=== PATIENT | male | born 1960 | race Caucasian/White ===

== ENCOUNTER 2018-06-20 05:41 | Inpatient (IN) | payer BC, OTHER ==
[2018-06-11 08:20] VITALS: BMI 31.0
--- NOTE | 2018-06-11 08:29 | PAT Medication Instructions ---
Service Date Jun 11, 2018. Current Home Medication List Aspirin (Aspir-Low), 81 MG PO BID Atorvastatin (Lipitor), 10 MG PO QPM Esomeprazole Magnesium (Nexium), 20 MG PO AFTERNOON Finasteride (Proscar), 5 MG PO AFTERNOON Losartan Potassium (Losartan Potassium), 25 MG PO QAM Tamsulosin Hcl (Flomax), 0.4 MG PO BID Warfarin Sod (Jantoven), 1 MG PO QPM Medication Instructions For Your Scheduled Surgery -Check with your surgeon for instructions for: Aspirin (Aspir-Low), 81 MG PO BID - Hold the following medications 5 days prior to surgery per hematology: Warfarin Sod (Jantoven), 1 MG PO QPM - Hold the following medications the morning of surgery: Losartan Potassium (Losartan Potassium), 25 MG PO QAM - Take the following medications the morning of surgery with a sip of water: Tamsulosin Hcl (Flomax), 0.4 MG PO BID - Take the following medications as scheduled the afternoon/night before surgery : Atorvastatin (Lipitor), 10 MG PO QPM Esomeprazole Magnesium (Nexium), 20 MG PO AFTERNOON Finasteride (Proscar), 5 MG PO AFTERNOON Tamsulosin Hcl (Flomax), 0.4 MG PO BID If you have any questions please call us at [phone] or [phone] or [phone]
--- NOTE | 2018-06-11 08:54 | DIAGNOSTIC IMAGING REPORT ---
CHEST 2 VIEWS ROUTINE CLINICAL HISTORY: PAT preoperative evaluation COMPARISON STUDY: 10/08/2013 FINDINGS: The bones soft tissues and hemidiaphragms are normal. The cardiomediastinal silhouette is normal. The lungs are clear. The pulmonary vasculature is normal. IMPRESSION: Negative chest. The above report was generated using voice recognition software. It may contain grammatical, syntax or spelling errors. Electronically signed by: Michael Diane M.D. 06/11/2018 8:52 AM Dictated Date/Time: 06/11/2018 8:52 AM
[2018-06-11 10:30] LABS: CALCIUM 8.7 mg/dl (8.5-10.1); CREATININE 1.08 mg/dl (0.60-1.40); POTASSIUM 4.1 mmol/L (3.5-5.1)
[2018-06-11 10:37] LABS: PTT PATIENT 28.4 SECONDS (21.0-31.0)
[2018-06-11 11:25] LABS: BASO % 0.2 %; BASO ABS # 0.03 K/uL (0-0.2); EOS ABS # 0.26 K/uL (0-0.5); HEMATOCRIT 47.3 % (42-52); HEMOGLOBIN 15.9 g/dL (14.0-18.0); IG# 0.16 K/uL (0.00-0.02); LYMPH % 17.3 %; LYMPH ABS # 2.29 K/uL (1.2-3.4); MEAN CELL VOLUME 80.6 fL (80-100); MEAN CORPUSCULAR HEMOGLOBIN 27.1 pg (25-34); MEAN CORPUSCULAR HGB CONC 33.6 g/dl (32-36); MEAN PLATELET VOLUME 10.9 fL (7.4-10.4); MONO % 8.8 %; MONO ABS # 1.17 K/uL (0.11-0.59); NEUT % 70.5 %; NEUT ABS # 9.32 K/uL (1.4-6.5); PLATELET COUNT 243 K/uL (130-400); RED CELL DISTRIBUTION WIDTH CV 13.6 % (11.5-14.5); RED CELL DISTRIBUTION WIDTH SD 39.9 fL (36.4-46.3); WHITE BLOOD COUNT 13.23 K/uL (4.8-10.8)
[~2018-06-20] VITALS: Ht 182.9 cm; Wt 105.4 kg
[2018-06-20] VITALS (10 sets, daily range): BP systolic 116–150; BP diastolic 70–99; PULSE 82–95; TEMP 36.4–37; O2SAT 93–98; Ht 182.9 cm; Wt 105.4 kg
[~2018-06-20 05:41] MED LIST: ASPI81TA25 PO; ATOR10TA82 PO; CZR25 PO; ESOM20CA PO; FINA5TAB PO; TAMS0.4C38 PO; WARF1TAB6 PO
[2018-06-20] MEDS ORDERED: ACETAMINOPHEN 500 MG TAB PO SCH (06:00)
[2018-06-20] MEDS ORDERED: CeleBREX 200 MG CAP PO SCH (06:00)
[2018-06-20] MEDS ORDERED: CEFAZOLIN 2000MG IV PUSH 15 ML IV SCH (06:00)
[2018-06-20] MEDS ORDERED: GABAPENTIN 600 MG PO SCH (06:00)
[2018-06-20] MEDS ORDERED: LACTATED RINGER'S 1000ML 1,000 ML IV SCH (06:00)
[2018-06-20] MEDS ORDERED: MIDAZOLAM HCL 1 MG/ML 2ML VIAL ONE (06:53)
[2018-06-20] MEDS ORDERED: FENTANYL CITRATE INJ 50 MCG/1 ML 2 ML VIAL ONE (06:53)
[2018-06-20] MEDS ORDERED: THROMBIN FOR SOLN 20000 UNIT KIT ONE (06:55)
[2018-06-20] MEDS ORDERED: BUPIVACAINE/EPINEPHRINE 0.5% MPF 1:200,000 30 ML VIAL ONE (06:55)
[2018-06-20] MEDS ORDERED: SODIUM CHLORIDE 0.9% PF 50 ML VIAL ONE (06:55)
[2018-06-20] MEDS ORDERED: BUPIVACAINE LIPOSOME 1/3% 266 MG/20 ML VIAL ONE (06:55)
[2018-06-20] MEDS ORDERED: BACITRACIN 50000 UNIT VIAL ONE (06:56)
[2018-06-20] MEDS ORDERED: BUPIVACAINE 0.5 % 5 MG/1 ML PF 10ML VIAL ONE (07:04)
[2018-06-20] MEDS ORDERED: NALOXONE HCL 0.4 MG/1 ML VIAL/CARP IV PRN ×2 (07:30→09:45)
[2018-06-20] MEDS ORDERED: PHENYLEPHRINE 100MCG/ML 5ML SYR IV PRN (07:30)
[2018-06-20] MEDS ORDERED: LABETALOL HCL IV 5 MG/ML 20ML IV PRN (07:30)
[2018-06-20] MEDS ORDERED: EpHEDrine SULFATE INJ 50 MG/ML AMP IV PRN (07:30)
[2018-06-20] MEDS ORDERED: FLUMAZENIL 0.1 MG/1 ML 10 ML VIAL IV PRN (07:30)
[2018-06-20] MEDS ORDERED: MoRPHine SULFATE 10 MG/ML CARP/VIAL IV PRN (07:30)
[2018-06-20] MEDS ORDERED: MEPERIDINE HCL 25 MG/ML CARP IV PRN (07:30)
[2018-06-20] MEDS ORDERED: ONDANSETRON INJ 2 MG/ML 2 ML VIAL IV PRN ×2 (07:30→09:45)
[2018-06-20] MEDS ORDERED: ATROPINE SULFATE 0.1 MG/ML 5ML SYR IV PRN (07:30)
[2018-06-20 07:33] LABS: PTT PATIENT 29.5 SECONDS (21.0-31.0)
--- NOTE | 2018-06-20 07:34 | History & Physical Bridge Note ---
H&P Re-Evaluation Bridge Note: I have examined the patient, reviewed the History & Physical and in the interval since the performance of the History & Physical I have noted the following changes of clinical significance: No changes noted
--- NOTE | 2018-06-20 07:35 | History and Physical ---
History & Physical Date Jun 20, 2018. Chief Complaint Back and leg pain History of Present Illness The patient is a 57 year old male with complaints of back and leg pain Additional History Hepatic Disease: No Endocrine Disorder: No Kidney Disease: No Hypertension: Yes Heart Disease: No Bleeding Tendencies: No Infectious Diseases: No Allergies Coded Allergies: No Known Allergies (Verified , 06/20/18) Home Medications Scheduled Aspirin (Aspir-Low), 81 MG PO BID Atorvastatin (Lipitor), 10 MG PO QPM Esomeprazole Magnesium (Nexium), 20 MG PO AFTERNOON Finasteride (Proscar), 5 MG PO AFTERNOON Losartan Potassium (Losartan Potassium), 25 MG PO QAM Tamsulosin Hcl (Flomax), 0.4 MG PO BID Warfarin Sod (Jantoven), 1 MG PO QPM Physical Examination Skin: warm/dry, no rash Eyes: normal inspection, EOMI, sclerae normal ENT: normal ENT inspection, pharynx normal Head: normocephalic, atraumatic Neck: supple, no adenopathy, trachea midline Respiratory/Chest: lungs clear, normal breath sounds, no respiratory distress Cardiovascular: regular rate, rhythm, no edema, no murmur Abdomen / GI: normal bowel sounds, non tender Back: normal inspection Extremities: normal inspection, normal range of motion Neurologic/Psych: no motor/sensory deficits, alert, normal reflexes, oriented x 3 Diagnosis Lumbar spinal stenosis with neurogenic claudication Plan of Treatment Decompression and fusion L2-3 hardware removal L3-L5
[2018-06-20] MEDS ORDERED: LIDOCAINE HCL 2% 2 ML VIAL (20MG/ML) ONE (08:13)
[2018-06-20] MEDS ORDERED: ROCURONIUM BROMIDE 10 MG/ML 5 ML VIAL ONE (08:13)
[2018-06-20] MEDS ORDERED: ONDANSETRON INJ 2 MG/ML 2 ML VIAL ONE (08:13)
[2018-06-20] MEDS ORDERED: DEXAMETHASONE SOD INJ 4 MG/ML VIAL ONE (08:13)
[2018-06-20] MEDS ORDERED: PROPOFOL IV EMULSION 10 MG/ML 20 ML VIAL ONE (08:13)
[2018-06-20] MEDS ORDERED: SODIUM CHLORIDE 0.9% INJ 10 ML VIAL ONE (08:26)
[2018-06-20] MEDS ORDERED: GLYCOPYRROLATE INJ 0.2 MG/ML VIAL ONE (08:29)
[2018-06-20] MEDS ORDERED: PHENYLEPHRINE 100MCG/ML 5ML SYR ONE (08:29)
[2018-06-20] MEDS ORDERED: NEOSTIGMINE METHYLSULFATE 1 MG/ML 10ML VIAL ONE (08:29)
[2018-06-20] MEDS ORDERED: EpHEDrine SULFATE 50MG/5ML SYR ONE (08:32)
[2018-06-20] MEDS ORDERED: HYDROmorphone INJ 2 MG/ML SYR/VIAL ONE (09:12)
[2018-06-20] MEDS ORDERED: HYDROmorphone INJ 0.5 MG/0.5 ML SYR IV PRN (09:45)
[2018-06-20] MEDS ORDERED: BISACODYL 10 MG SUPP PR PRN (09:45)
[2018-06-20] MEDS ORDERED: PROMETHAZINE HCL INJ 12.5 MG in SODIUM CHLORIDE 0.9% 50ML 50 ML IV PRN (09:45)
[2018-06-20] MEDS ORDERED: ACETAMINOPHEN IV 100 ML IV PRN (09:45)
[2018-06-20] MEDS ORDERED: CEFAZOLIN IV 2,000 MG in DEXTROSE 5% 50ML 50 ML IV SCH (09:45)
[2018-06-20] MEDS ORDERED: LORAZEPAM INJ 0.5 MG in SYRINGE 0 ML IV PRN (09:45)
[2018-06-20] MEDS ORDERED: hydrOXYzine HCL 25 MG TAB PO PRN (09:45)
[2018-06-20] MEDS ORDERED: LORAZEPAM 0.5 MG TAB PO PRN (09:45)
[2018-06-20] MEDS ORDERED: FAMOTIDINE 20 MG TAB PO PRN (09:45)
[2018-06-20] MEDS ORDERED: DO NOT ADMINISTER FLU VACCINE PRN (09:45)
[2018-06-20] MEDS ORDERED: ALUMINUM/MAGNESIUM SUSP 30 ML UDC PO PRN (09:45)
[2018-06-20] MEDS ORDERED: DO NOT ADMINISTER PNEUMOCOCCAL VACCINE PRN (09:45)
[2018-06-20] MEDS ORDERED: SOD PHOSPHATE/SOD BIPHOSPHATE ENEMA 132 ML BTL PR PRN (09:45)
[2018-06-20] MEDS ORDERED: METOCLOPRAMIDE HCL INJ 5 MG/ML 2 ML VIAL IV PRN (09:45)
[2018-06-20] MEDS ORDERED: MAGNESIUM HYDROXIDE SUSP 30 ML UDC PO PRN (09:45)
--- NOTE | 2018-06-20 09:45 | [facility] Operative Report ---
Operative Report Operative Date Jun 20, 2018. Pre-Operative Diagnosis Lumbar spinal stenosis with neurogenic claudication Post-Operative Diagnosis Lumbar spinal stenosis with neurogenic claudication Procedure(s) Performed 1. Removal of posterior segmental instrumentation L3-4 L4-5 per #2 expiration of fusion L3-4 L4-5 per #3 lumbar decompression medial facetectomies foraminotomies L1-L2 3. #4 posterior spinal fusion L2-3. #5 placement of posterior instrumentation L2-3. #6 interbody fusion L2-3. #7 placement peek cage 11 x 26 mm L2-3. #8 placement of local autograft in the posterior lateral gutters. #9 placement of infuse collagen sponge combined with mass graft in the posterior lateral gutters and ostial amp in the interbody space. Surgeon Mechanical Systems Design Engineer Surgeon(s) LIZETH Seals Estimated Blood Loss 250 Findings Severe spinal stenosis Specimens A. Removed Lumbar Hardware Anesthesia Type General Description of Procedure Patient was met with preoperatively case discussed all questions addressed. After informed consent obtained patient was taken to the operative suite underwent intubation and placed in a prone position on the Carlos table on top of the Waldo frame. All bony prominences well-padded eyes inspected to ensure no external pressure placed upon the. This point the lumbar spine was prepped and draped in the normal sterile fashion. Sharp dissection with the assistance Bovie cautery was performed down to and exposing the lamina and transverse processes of L2 and instrumentation L3-L4-L5 bilaterally. I then proceeded with hardware L3 L4-5 bilaterally explain the fusion mass noting it to be intact. Then performed complete laminectomy of L2 and L1 addressing severe lateral recess and foraminal disease. Pedicle screws were then placed in L2 and L3 bilaterally with the assistance of fluoroscopy and process chata placed. Through a trans-foraminal portion right complete discectomy was warmed endplates created to subcortical bleeding bone and a 11 x 26 mm peek cage filled with ostium bone graft tapped in position. The rods then compressed locked in final position bilaterally. The transverse processes of L2 and L3 burred to subcortical bleeding bone. Infuse collagen sponge mass graft local autograft placed in the posterior gutters. Approximately 100 cc of Exparel injected into the musculature. 15 round DEVON drain inserted. Incision was then closed with 1 Vicryl fascia 2-0 Vicryl substantially and 4-0 Monocryl for fast closure Steri-Strips sterile dressing placed. Patient weakened the PACU stable disc. Please note Rani Alcocer present at the entire procedure involved in patient positioning complex portions of the surgery and final skin closure. I attest to the content of the Intraoperative Record and any orders documented therein. Any exceptions are noted below.
--- NOTE | 2018-06-20 09:56 | DIAGNOSTIC IMAGING REPORT ---
INTRAOPERATIVE LUMBAR SPINE 2 VIEWS CLINICAL HISTORY: L2-L3 DECOMPRESSION AND FUSION, L3-L5 HARDWARE REMOVAL COMPARISON STUDY: 11/04/2013 FINDINGS: 8 seconds of fluoroscopic time was utilized. 2 intraoperative fluoroscopic spot images are provided for interpretation. There are postsurgical changes of an interval L2-3 discectomy and interbody fusion. There is been interval removal of the previous identified L4 and L5 pedicle screws. There is L2-3 posterior spinal fusion with pedicle screws and adjoining rods. IMPRESSION: Intraoperative radiographs demonstrate postsurgical changes as described above. Electronically signed by: Waqas Begum M.D. 06/20/2018 9:55 AM Dictated Date/Time: 06/20/2018 9:52 AM
[2018-06-20] MEDS: HYDROmorphone INJ 1 MG/ML SYR IV PRN ×4 (10:20→10:43)
--- NOTE | 2018-06-20 10:46 | Anesthesiology Progress Note ---
Anesthesia Post Op Note Date & Time Jun 20, 2018 at 10:46 Vital Signs Pain Intensity: 2 Vital Signs Past 12 Hours Date Time Temp Pulse Resp B/P (MAP) Pulse Ox O2 Delivery O2 Flow Rate FiO2 06/20/18 10:40 76 14 126/80 97 Nasal Cannula 3 Oxymask 06/20/18 10:30 87 13 124/89 96 Nasal Cannula 10 Oxymask 06/20/18 10:20 87 13 124/89 96 Nasal Cannula 10 Oxymask 06/20/18 10:10 91 17 135/81 99 Oxymask 10 06/20/18 10:03 36.7 79 16 116/61 100 Oxymask 10 06/20/18 06:10 36.7 92 20 150/99 96 Room Air Notes Mental Status: alert / awake / arousable, participated in evaluation Pt Amnestic to Procedure: Yes Nausea / Vomiting: adequately controlled Pain: adequately controlled Airway Patency, RR, SpO2: stable & adequate BP & HR: stable & adequate Hydration State: stable & adequate Anesthetic Complications: no major complications apparent
[2018-06-20] MEDS ORDERED: FLOSEAL HEMOSTATIC MATRIX 10ML TOP ONE (11:04)
[2018-06-20] MEDS: SODIUM CHLORIDE 0.9% 1000ML 1,000 ML IV SCH ×3 (11:15→23:05)
[2018-06-20] MEDS: ACETAMINOPHEN 500 MG TAB PO PRN (12:35)
[2018-06-20] MEDS: OXYCODONE HCL IR 5 MG TAB (IMMEDIATE RELEASE) PO PRN ×2 (13:46→23:04)
[2018-06-20] MEDS: CEFAZOLIN IV 2,000 MG in SYRINGE 0 ML IV SCH ×2 (16:51→23:05)
[2018-06-20] MEDS: PANTOprazole SOD 40 MG TAB PO SCH (16:52)
[2018-06-20] MEDS: ASPIRIN 81 MG ECTAB PO SCH (20:40)
[2018-06-20] MEDS: ATORVASTATIN 10 MG TAB PO SCH (20:41)
[2018-06-20] MEDS: DOCUSATE SODIUM/SENNA 50/8.6MG TAB PO SCH (20:41)
[2018-06-20] MEDS: TAMSULOSIN HCL 0.4 MG CAP PO SCH (20:41)
[2018-06-21 03:50] VITALS: BP 149/71; PULSE 85; TEMP 36.7; O2SAT 97
[2018-06-21] MEDS: SODIUM CHLORIDE 0.9% 1000ML 1,000 ML IV SCH (05:39)
[2018-06-21] MEDS: OXYCODONE HCL IR 5 MG TAB (IMMEDIATE RELEASE) PO PRN (06:10)
[2018-06-21 07:07] LABS: BASO % 0.1 %; BASO ABS # 0.02 K/uL (0-0.2); HEMATOCRIT 39.5 % (42-52); HEMOGLOBIN 12.8 g/dL (14.0-18.0); IG# 0.17 K/uL (0.00-0.02); LYMPH % 11.2 %; LYMPH ABS # 2.56 K/uL (1.2-3.4); MEAN CELL VOLUME 81.1 fL (80-100); MEAN CORPUSCULAR HEMOGLOBIN 26.3 pg (25-34); MEAN CORPUSCULAR HGB CONC 32.4 g/dl (32-36); MEAN PLATELET VOLUME 10.7 fL (7.4-10.4); MONO % 9.3 %; MONO ABS # 2.13 K/uL (0.11-0.59); NEUT % 78.7 %; NEUT ABS # 18.06 K/uL (1.4-6.5); PLATELET COUNT 297 K/uL (130-400); RED CELL DISTRIBUTION WIDTH SD 41.4 fL (36.4-46.3); WHITE BLOOD COUNT 22.94 K/uL (4.8-10.8)
[2018-06-21 07:30] VITALS: BP 134/79; PULSE 87; TEMP 36.6; O2SAT 95
[2018-06-21 07:43] LABS: CALCIUM 8.1 mg/dl (8.5-10.1)
--- NOTE | 2018-06-21 07:43 | Anesthesiology Progress Note ---
Anesthesia Post Op Note Date & Time Jun 21, 2018 at 07:42 Vital Signs Pain Intensity: 7.0 Vital Signs Past 12 Hours Date Time Temp Pulse Resp B/P (MAP) Pulse Ox O2 Delivery O2 Flow Rate FiO2 06/21/18 03:50 36.7 85 16 149/71 (97) 97 Room Air 06/20/18 23:30 37.0 87 16 127/70 (89) 95 Room Air 06/20/18 23:10 Room Air Notes Mental Status: alert / awake / arousable, participated in evaluation Pt Amnestic to Procedure: Yes Nausea / Vomiting: adequately controlled Pain: adequately controlled Airway Patency, RR, SpO2: stable & adequate BP & HR: stable & adequate Hydration State: stable & adequate Anesthetic Complications: no major complications apparent
[2018-06-21] MEDS: LOSARTAN POTASSIUM 25 MG TAB PO SCH (08:52)
[2018-06-21] MEDS: ASPIRIN 81 MG ECTAB PO SCH ×2 (08:52→20:45)
[2018-06-21] MEDS: FINASTERIDE 5 MG TAB PO SCH (08:52)
--- NOTE | 2018-06-21 10:29 | PROGRESS NOTE ---
DATE: 06/21/2018 SUBJECTIVE: He is postoperative day 1 revision decompression with instrumented fusion. He is doing well. He is sitting in his chair this morning. He has modest back pain. No radicular leg pain. DEVON drain output last shift was 95 mL. H and H this morning are 12.8 and 39.5 respectively. He has no other complaints. PHYSICAL EXAMINATION: GENERAL: He is again, sitting in a chair, alert and oriented x3. He is in no obvious distress. EXTREMITIES: Lower extremities are neurovascularly intact bilaterally. Calves are soft and nontender. Dressing is clean, dry and intact lumbar spine. ASSESSMENT: Postoperative day 1 of removal of instrumentation with adjacent level instrumented fusion. PLAN: We will start physical therapy. Continue with pain control. Continue with bowel regimen. DVT prophylaxis in the form of TEDs and SCDs. Anticipate discharge home within the next 24-48 hours.
[2018-06-21] MEDS ORDERED: NURSING VERBAL MED ORDER ONE (11:15)
[2018-06-21 15:54] VITALS: BP 123/83; PULSE 75; TEMP 36.7; O2SAT 99
[2018-06-21] MEDS: PANTOprazole SOD 40 MG TAB PO SCH (16:20)
[2018-06-21] MEDS: ACETAMINOPHEN 500 MG TAB PO PRN (16:30)
[2018-06-21] MEDS: TAMSULOSIN HCL 0.4 MG CAP PO SCH (20:44)
[2018-06-21] MEDS: ATORVASTATIN 10 MG TAB PO SCH (20:45)
[2018-06-21] MEDS: DOCUSATE SODIUM/SENNA 50/8.6MG TAB PO SCH (20:45)
[2018-06-21 23:11] VITALS: BP 146/89; PULSE 72; TEMP 36.9; O2SAT 99
[2018-06-22] MEDS: POLYETHYLENE (MIRALAX) 17 GM PACK PO SCH ×2 (05:53→11:26)
[2018-06-22] MEDS: ACETAMINOPHEN 500 MG TAB PO PRN ×2 (05:53→13:30)
[2018-06-22 06:51] VITALS: BP 130/80; PULSE 91; TEMP 36.7; O2SAT 97
[2018-06-22] MEDS: FINASTERIDE 5 MG TAB PO SCH (08:26)
[2018-06-22] MEDS: LOSARTAN POTASSIUM 25 MG TAB PO SCH (08:27)
[2018-06-22] MEDS: ASPIRIN 81 MG ECTAB PO SCH (08:27)
[2018-06-22] MEDS ORDERED: RXC5 PO (12:35)
--- NOTE | 2018-06-22 12:35 | Discharge Instructions ---
Discharge Instructions Date of Service Jun 22, 2018. Admission Reason for Admission: Lumbar Spinal Stenosis Discharge Discharge Diagnosis / Problem: lumbar stenosis Discharge Goals Goal(s): Improve function Activity Recommendations Activity Limitations: per Instructions/Follow-up section . Instructions / Follow-Up Instructions / Follow-Up ACTIVITY RECOMMENDATIONS: SELF CARE INSTRUCTIONS AFTER THORACIC/LUMBAR FUSIONS 1. You may walk to your tolerance. It is good exercise for your legs and back. Expect some back and intermittent leg aches and pains. 2. You may perform "counter-top" level activities (make a sandwich, huy with a project, etc.). 3. No bending or lifting of more than 10 pounds or back twisting of any nature (roll like a log when turning in bed). 4. You may ride in a car for 20-30 minutes at a time. No driving until after your first visit with your doctor. 5. Frequent changes of position and restricting sitting to 30 minutes at a time will help limit the amount of back spasms and stiffness you may experience. 6. You may discontinue the use of ambulatory aids (cane, crutches, etc.) once your strength and confidence allow. 7. You may manager recruiting the shower and let water strike your incision when you arrive home at least once daily. Do not take a tub bath, sit in a hot tub or go into a swimming pool until after your first recheck in the office. SPECIAL CARE INSTRUCTIONS: VERY IMPORTANT TO READ AND REVIEW A. Your surgical incision has been closed with a cosmetic suture under the skin that will dissolve in about 6 weeks. In 14 days, you can use a pair of clean scissors and cut the suture that is left outside of the skin at the ends of your incision. 1. The small skin tapes can be removed 7 days after surgery if they have not fallen off by that point. 2. You may keep the wound open to air as much as possible to promote healing after post-op day number 5 unless told otherwise by your doctor. 3. If you think the wound looks like it is becoming infected (redness or worsening drainage) and/or you are experiencing fever, chill or worsening back pain and muscle spasms, contact the office so that we may evaluate you as soon as possible. B. Complications are uncommon, but please contact us if you have any signs or symptoms of: 1. wound infection (fever higher than 102.5 degrees F, redness, separation of wound, drainage, or increasing pain from the incision) 2. blood clots in legs (pain, swelling, redness and warmth in legs) 3. urinary tract infection (fever higher than 102.5 degrees F, burning upon urination or increased frequency of urination) 4. nerve problems (inability to walk on your toes or heels, numbness, loss of bowel or bladder control) 5. any other symptoms that concern you C. Please call the office at if you have any concerns or questions about your operation or recovery. D. No smoking! Smoking drastically decreases the chance of a solid fusion. E. Do not take any anti-inflammatory medications (Indocin, Advil, Motrin, Aspirin, Naprosyn, etc.) as these may inhibit the chance of a solid fusion. Tylenol is okay to take for pain. MANAGING PAIN AFTER SPINAL SURGERY 1. Narcotic medication is intended for short-term use and will be provided for surgical pain. Surgical pain usually lasts for a period of 4-6 weeks. Narcotic medication includes Percocet, Vicodin, Darvocet, Tylenol #3 or Lortab. 2. Longer-term pain is more appropriately treated with non-narcotic medication such as Tylenol ES. 3. Muscle spasm is not appropriately treated with narcotics. Muscle relaxers such as Soma, Flexeril or Skelaxin can be used along with Tylenol ES. 4. Remember that we all live with some "aches and pains". This is not unusual or uncommon after an injury or as we get older. a. Back pain is expected and may include muscle spasms for 4 to 6 weeks after surgery. The pain should gradually improve. If the pain worsens for no apparent reason, please contact the office. b. Intermittent leg pain may also be experienced and should not be concerned about unless it worsens for no apparent reason. If so, please contact the office. 5. We will provide appropriate medication within the normal guidelines of their prescribed use. We will also be very cautious and aware of potential abuse and extended duration of patients' medication needs. a. Pain medications are for your comfort and to assist with sleep and rest so that the tissue can heal. They are not provided in order to return to normal activity and should not be used through the day. To do so or worsening pain at night can result from ongoing tissue damage and development of tolerance to the prescribed medicine. 6. Please allow 2-3 days to process refills. Prescriptions will not be mailed but must be picked up at the office. FOLLOW UP VISIT: Keep your scheduled follow-up appointment. Any questions, please call the office at . Current Hospital Diet Patient's current hospital diet: Regular Diet Discharge Diet Recommended Diet: Regular Diet Procedures Procedures Performed: 1. Removal of posterior segmental instrumentation L3-4 L4-5 per #2 expiration of fusion L3-4 L4-5 per #3 lumbar decompression medial facetectomies foraminotomies L1-L2 3. #4 posterior spinal fusion L2-3. #5 placement of posterior instrumentation L2-3. #6 interbody fusion L2-3. #7 placement peek cage 11 x 26 mm L2-3. #8 placement of local autograft in the posterior lateral gutters. #9 placement of infuse collagen sponge combined with mass graft in the posterior lateral gutters and ostial amp in the interbody space. Pending Studies Studies pending at discharge: no Medical Emergencies . Who to Call and When: Medical Emergencies: If at any time you feel your situation is an emergency, please call 911 immediately. . Non-Emergent Contact Non-Emergency issues call your: Primary Care Provider . "Provider Documentation" section prepared by Alvin Sanon. .
--- NOTE | 2018-06-22 13:18 | Discharge Summary ---
Orthopedic Discharge Summary Admission Date/Reason Jun 20, 2018 at 07:30 Lumbar Spinal Stenosis. Discharge Date/Disposition Jun 22, 2018 Home Diagnosis Principal Diagnosis: Lumbar spinal stenosis Admission Physical Exam As per Admitting History & Physical. Hospital Course Patient underwent lumbar decompression fusion tolerated this well was taken to the orthopedic for postoperative. Postop day #1 he was up and ambulating without difficulty progress through postop day #2. DEVON drain decreasing appropriately. Pain well controlled. Subsequently discharged home. Discharge orders and instructions can be found on the chart for further review. Discharge Instructions Please refer to the electronic Patient Visit Report (Discharge Instructions) for additional information.
[2018-06-22 13:39] VITALS: BP 130/80; PULSE 91; TEMP 36.7; O2SAT 97
== END 2018-06-22 14:20 | disposition home or self-care (01) | DRG 455 ==
LOC: C.ACU 05:41 → C.3E 07:30 → ENRESERV 10:46
PROVIDERS: ADMIT Orthopaedic Surgery Orthopaedic Surgery of the Spine; ATTEND Orthopaedic Surgery Orthopaedic Surgery of the Spine
PROC: 0SG10AJ Fusion of 2 or more Lumbar Vertebral Joints with Interbody Fusion Device, Posterior Approach, Anterior Column, Open Approach (ICD-10-PCS; principal; 2018-06-20 07:45)
PROC: 0SG10J1 Fusion of 2 or more Lumbar Vertebral Joints with Synthetic Substitute, Posterior Approach, Posterior Column, Open Approach (ICD-10-PCS; principal; 2018-06-20 07:45)
PROC: 0SP00AZ Removal of Interbody Fusion Device from Lumbar Vertebral Joint, Open Approach (ICD-10-PCS; principal; 2018-06-20 07:45)
DX: M48.062 Spinal stenosis, lumbar region with neurogenic claudication (principal); I10 Essential (primary) hypertension; Z79.82 Long term (current) use of aspirin